=== PATIENT | female | born 1950 | race African-American/Black ===

== ENCOUNTER → 2019-10-18 13:30 | Outpatient (CLI) | payer MEDICARE, MEDICAID, SELFPAY ==
--- NOTE | 2019-10-18 13:41 | RAD_ITS ---
STUDY: X-RAY - CERVICAL SPINE REASON FOR EXAM: Female, 69 years old. CHRONIC PAIN TECHNIQUE: 3 view(s) of the cervical spine were obtained on 5 images. The swimmer''s view is rotated and, in this patient of large body habitus, portions of the spine are obscured by overlapping soft tissues in some images. COMPARISON: None FINDINGS: There are degenerative changes of the anterior atlantoaxial articulation. Normal odontoid process. Normal cervical lordosis. There is multi-level endplate spondylosis. There is degenerative disc height narrowing at C5-6. There are hypertrophic, multilevel degenerative changes of the bilateral facet reticulations. The prevertebral soft tissue structures are unremarkable. There is no demonstrated osseous destructive process or acute fracture of the cervical spine. RAD/Cerv Spine 2 or 3 Views IMPRESSION: Multilevel degenerative changes of the visualized cervical spine. Electronically Signed: Jhoan Mckee MD at 16:02 EDT , Service support ,
--- NOTE | 2019-10-18 13:41 | RAD_ITS ---
STUDY: X-RAY - LUMBAR SPINE REASON FOR EXAM: Female, 69 years old. CHRONIC PAIN TECHNIQUE: 3 view(s) of the lumbar spine were obtained. The patient is mildly rotated on the lateral images. COMPARISON: None FINDINGS: Normal lumbar lordosis. There is a 10 degree levoscoliosis of the lumbar spine centered at L1-2, and an 18-19 degree dextroscoliosis centered at L5-S1. There is a normal alignment of the vertebrae. There is multilevel endplate spondylosis of the lumbar vertebrae. There is mild narrowing of the L4-5 disc height and moderately severe disc height narrowing at L5-S1. There is no demonstrated osseous destructive lesion or acute fracture. There are multilevel hypertrophic degenerative arthroses of the lumbar facet articulations. Some narrowing and periarticular sclerosis also seen at the right sacroiliac joint. The soft tissue structures are unremarkable. RAD/Lumbar Spine 2 or 3 Views IMPRESSION: Degenerative changes of the spine, as detailed above. Electronically Signed: Jhoan cMkee MD at 15:48 EDT , Service support ,
== END ==
PROVIDERS: Referring Provider Anesthesiology Pain Medicine; Visit Provider Anesthesiology Pain Medicine
DX: M54.2 Cervicalgia (principal); M54.9 Dorsalgia, unspecified
CPT/HCPCS: 72040; 72100

== ENCOUNTER → 2020-07-22 17:36 | Outpatient (CLI) | payer MEDICARE, MEDICAID, SELFPAY ==
--- NOTE | 2020-07-22 17:44 | MRI_ITS ---
STUDY: MRI LUMBAR SPINE WITHOUT CONTRAST REASON FOR EXAM: Female, 69 years old. Pain in the back and both legs. TECHNIQUE: Standardized fat and water weighted pulse sequences were obtained in the sagittal and axial planes. COMPARISON: Lumbar spine radiographs 10/18/2019. FINDINGS: Vertebrae: No fracture or acute or concerning signal changes in the vertebrae. Mild degenerative, 2 mm, anterolisthesis of L4 on L5. Mild right scoliosis centered at L4. Alignment otherwise anatomic. Small hemangioma posterior aspect L4 vertebral body. Conus: Terminates at the level of the L1-2 disc with normal contour and signal. Degenerative changes, thecal sac and foramina: Mildly prominent posterior epidural fat extends throughout the lumbar spine. At L1-2, L2-3 and L3-4, small diffuse disc bulge and moderate bilateral facet degeneration cause only mild narrowing. At L4-5, marked bilateral facet degeneration with mild degenerative anterolisthesis and unroofing of the disc and prominent degenerative buckling of the ligamentum flavum causes moderate to severe narrowing of the bilateral subarticular zones, and mild bilateral foraminal narrowing. At L5-S1, moderate bilateral facet degeneration with facet osteophytes and disc ossified complex extending into the foramina cause moderate bilateral foraminal narrowing with disc and osteophyte abutting but not compressing the exiting bilateral L5 nerve roots. Only mild spinal canal narrowing. Paraspinal soft tissues: No acute or concerning findings. MRI/Spine Lumbar (Routine) IMPRESSION: At L4-5, marked bilateral facet degeneration with mild degenerative anterolisthesis and unroofing of the disc and prominent degenerative buckling of the ligamentum flavum causes moderate to severe narrowing of the bilateral subarticular zones. If there is either side L5 radiculopathy this is likely the cause. Consider flexion-extension radiographs; given the facet degeneration and anterolisthesis, there may be mechanical instability which could cause more severe narrowing with motion. Less prominent degenerative changes at other levels. Electronically Signed: Karan Quiñonez MD at 4:58 EST Tel , Service support ,
== END ==
PROVIDERS: Referring Provider Anesthesiology Pain Medicine; Visit Provider Anesthesiology Pain Medicine
DX: M54.9 Dorsalgia, unspecified (principal); M79.606 Pain in leg, unspecified
CPT/HCPCS: 72148

== ENCOUNTER → 2020-08-12 16:19 | Outpatient (CLI) | payer MEDICARE, MEDICAID, SELFPAY ==
--- NOTE | 2020-08-12 16:36 | MRI_ITS ---
STUDY: MRI CERVICAL SPINE WITHOUT CONTRAST REASON FOR EXAM: Female, 70 years old. NECK PAIN TECHNIQUE: Standardized fat and water weighted pulse sequences were obtained in the sagittal and axial planes. COMPARISON: X-ray dated 10/18/2019 FINDINGS: Examination is degraded by motion artifact. Normal foramen magnum and brainstem-cervical cord junction. There is straightening of the normal cervical lordosis. C2-3: Minimal disc osteophyte complex without demonstrated central canal stenosis. Evaluation of the neuroforamina is severely limited. C3-4: Minimal disc osteophyte complex without demonstrated central canal stenosis. Evaluation of the neuroforamina is severely limited. C4-5: Minimal disc osteophyte complex without demonstrated central canal stenosis. Evaluation of the neuroforamina is severely limited. C5-6: There is moderate disc space narrowing and endplates spondylosis. Moderate disc osteophyte complex with moderate central canal stenosis. Evaluation of the neuroforamina is severely limited. C6-7: Mild disc osteophyte complex without demonstrated central canal stenosis. Evaluation of the neuroforamina is severely limited. C7-T1: Minimal disc osteophyte complex without demonstrated central canal stenosis. Evaluation of the neuroforamina is severely limited. Unremarkable cervical spinal cord. MRI/Spine Cervical (Routine) IMPRESSION: Severely limited examination. C5/C6: Moderate central canal stenosis. Electronically Signed: Ruthie Herrera MD at 15:55 EDT Tel , Service support ,
== END ==
PROVIDERS: Referring Provider Anesthesiology Pain Medicine; Visit Provider Anesthesiology Pain Medicine
DX: M54.2 Cervicalgia (principal)
CPT/HCPCS: 72141

== ENCOUNTER → 2020-09-23 16:07 | Outpatient (CLI) | payer MEDICARE, MEDICAID, SELFPAY ==
[2020-09-23 17:40] LABS: Amphetamine Urine VISTA NEGATIVE (<1000 ng/mL); Barbiturate Urine VISTA NEGATIVE (< 200 ng/mL); Benzodiazepine Urine VISTA NEGATIVE (< 200 ng/mL); Cocaine Urine VISTA NEGATIVE (< 300 ng/mL); Ecstacy Urine VISTA NEGATIVE (< 500 ng/mL); Methadone Urine VISTA NEGATIVE (< 300 ng/mL); PCP Urine VISTA NEGATIVE (< 25 ng/mL); THC Urine VISTA NEGATIVE (< 50 ng/mL); Vista UDS pH Range 5
== END ==
PROVIDERS: Referring Provider Anesthesiology Pain Medicine; Visit Provider Anesthesiology Pain Medicine
DX: F11.20 Opioid dependence, uncomplicated (principal)
CPT/HCPCS: 80307